=== PATIENT | male | born 1960 | race Caucasian/White ===

== ENCOUNTER 2020-11-11 19:04 | Outpatient (REF) | payer OTHER, SELFPAY ==
[2020-11-11 16:20] LABS: Abs Immature Grans 0.03 10^3/uL (0.0-0.06); Absolute Basophil Count 0.04 10^3/uL (0.0-0.2); Absolute Eosinophil Count 0.07 10^3/uL (0.0-0.7); Absolute Lymphocyte Count 2.56 10^3/uL (1.2-3.4); Absolute Monocyte Count 0.59 10^3/uL (0.1-0.8); Absolute Neutrophil Count 5.97 10^3/uL (1.2-6.7); Basophils % 0.4; Eosinophils % 0.8; HCT 50.8 % (40.0-50.0); HGB 17.1 g/dL (13.5-17.5); Immature Grans % 0.3; Lymphocytes % 27.6; MCH 30.5 pg (27.0-33.0); MCHC 33.7 % (32.0-36.0); MCV 90.7 fL (80-95); MPV 9.8 fL (8.0-11.0); Monocytes % 6.4; Neutrophils % 64.5; Nucleated RBC 0 %; Platelet Count 190 10^3/uL (130-400); RDW 12.6 % (11.8-14.1); RDW-SD 41.7 fL; WBC 9.26 10^3/uL (4.4-10.8)
[2020-11-11 16:29] LABS: COMMENT (LAB VIEW ONLY) 133.07 mg/dL; Microalb ug/mg Crea 11.3 ug/mg Cr
[2020-11-11 16:33] LABS: ALT 24 U/L (16-63); AST 13 U/L (15-37); Albumin 3.9 g/dL (3.4-5.0); Alkaline Phosphatase 133 U/L (46-116); BUN 15 mg/dL (7-18); Bilirubin, Total 0.7 mg/dL (0.2-1.0); CREATININE 0.9 mg/dL (0.70-1.30); Calcium 9.2 mg/dL (8.5-10.1); Calculated LDL 82 mg/dL (<100); Chloride 102 mmol/L (98-107); Cholesterol 134 mg/dL (<200); Glucose 282 mg/dL (74-106); HDL Cholesterol 34 mg/dL (40-60); Potassium 4.1 mmol/L (3.5-5.1); Sodium 144 mmol/L (136-145); Total Protein 6.9 g/dL (6.4-8.2); Triglyceride 91 mg/dL (<150)
[2020-11-11 18:53] LABS: Hemoglobin A1C 13.6 % (<5.7)
== END 2020-11-11 19:05 | disposition home or self-care (01) ==
LOC: NCHCN 19:04
PROVIDERS: Visit Provider Physician Assistant
DX: E11.9 Type 2 diabetes mellitus without complications (principal); I25.10 Atherosclerotic heart disease of native coronary artery without angina pectoris; K21.9 Gastro-esophageal reflux disease without esophagitis; E78.5 Hyperlipidemia, unspecified; I10 Essential (primary) hypertension; N40.0 Benign prostatic hyperplasia without lower urinary tract symptoms
CPT/HCPCS: 80053; 80061; 82043; 82570; 83036; 84443; 85025

== ENCOUNTER 2021-11-14 14:33 | Outpatient (REF) | payer OTHER, SELFPAY ==
[2021-11-14 19:33] LABS: Anion Gap 7.6 mmol/L (3-11); BUN 20 mg/dL (7-18); CO2 28.4 mmol/L (21.0-32.0); CREATININE 1.1 mg/dL (0.70-1.30); Calcium 9.3 mg/dL (8.5-10.1); Chloride 105 mmol/L (98-107); Glucose 111 mg/dL (74-106); Potassium 4.8 mmol/L (3.5-5.1); Sodium 141 mmol/L (136-145)
== END 2021-11-14 14:34 | disposition home or self-care (01) ==
LOC: NCHCN 14:33
PROVIDERS: PCP Physician Assistant; Visit Provider Physician Assistant
DX: E11.65 Type 2 diabetes mellitus with hyperglycemia (principal)
CPT/HCPCS: 80048

== ENCOUNTER → 2022-09-26 08:46 | Outpatient (BNVA) | payer OTHER, SELFPAY | PROVIDERS: PCP Physician Assistant; Referring Provider Physician Assistant; Visit Provider Surgery | DX: K22.70 Barrett's esophagus without dysplasia (principal) | CPT/HCPCS: 99203 ==

== ENCOUNTER 2022-10-30 10:01 | Day surgery (SDC) | payer OTHER, SELFPAY ==
--- NOTE | 2022-10-29 20:37 | W.PREOPHP ---
Assessment and Plan Assessment and plan (1) Barretts esophagus: Assessment and plan: EGD and colonoscopy today History of Present Illness History of Present Illness Chief Complaint: Screening colonoscopy and Baretts Esophagus Narrative: He is 62 years old, he was diagnosed with Roberson's several years ago.? At that time, he was quite symptomatic with significant amount of dyspepsia and gastroesophageal reflux symptoms.? He was also diagnosed with what sounds like Helicobacter pylori.? At that time, he was started on Nexium, and he underwent what sounds like triple therapy for the H. pylori.? He is enjoyed near complete resolution of his symptoms, but he does still experience some dyspepsia if he misses a Nexium dose.? His past medical history is also significant for coronary artery disease which was managed with two-vessel stenting.? Currently, he is only maintained on 81 mg of aspirin as well as a statin.? He was seen by his lead net software developer last week, and he has no changes to his current therapy at this time.? He also has some sleep apnea which seems pretty well managed with CPAP. PFSH All Active Problems ANGELA (obstructive sleep apnea) (Chronic) Type 2 diabetes mellitus with hyperglycemia (Acute) Hyperlipidemia (Acute) Hypertension (Chronic) Medical History Anxiety disorder Barretts esophagus Benign prostatic hyperplasia Coronary artery disease Depression Family history of Alzheimer's disease Family history of colon cancer maternal Uncle GERD (gastroesophageal reflux disease) Gout History of acute myocardial infarction Obesity Tobacco smoker within last 12 months Surgical History History of arthroscopic knee surgery History of colonoscopy History of esophagogastroduodenoscopy (EGD) History of shoulder surgery Hx of heart artery stent 2 stent per patient Social History Smoking/Tobacco Use Status: Current every day Tobacco Type: cigars Smoking risk assessment performed?: Yes Substance use type: does not use Current gender identity: male Do you feel safe at home: Yes Do you feel safe in your relationship?: Yes Meds Allergies and Home Medications Allergies Allergy/AdvReac Type Severity Reaction Status Date / Time No Known Drug Allergies Allergy Verified 09/26/22 08:56 Home Medications Medication Instructions Recorded Confirmed Type aspirin 81 mg tablet,delayed 81 mg PO DAILY 07/20/22 10/30/22 History release atorvastatin 80 mg tablet 80 mg PO DAILY 07/20/22 10/30/22 History bupropion HCl 150 mg tablet,12 hr 150 mg PO BID 07/20/22 10/30/22 History sustained-release cholecalciferol (vitamin D3) 1,250 1,250 mcg PO DAILY 07/20/22 10/30/22 History mcg (50,000 unit) capsule dulaglutide 1.5 mg/0.5 mL 1.5 mg subcut QWEEK 07/20/22 10/30/22 History subcutaneous pen injector (Trulicity) escitalopram oxalate 5 mg tablet 5 mg PO DAILY 07/20/22 10/30/22 History lisinopril 20 mg tablet 20 mg PO DAILY 07/20/22 10/30/22 History metoprolol succinate 25 mg 25 mg PO DAILY 07/20/22 10/30/22 History tablet,extended release 24 hr omeprazole 40 mg capsule,delayed 40 mg PO DAILY 07/20/22 10/30/22 History release tamsulosin 0.4 mg capsule 0.8 mg PO DAILY 07/20/22 10/30/22 History hydroxyzine HCl 10 mg tablet 10 mg PO BID PRN 09/26/22 10/30/22 History Exam Const General: cooperative and healthy appearing Neck Neck: normal visual inspection and full ROM Resp Effort & Inspection: normal respiratory effort Auscultation: clear to auscultation bilaterally Cardio Jugular venous pressure: no JVD Rate: regular rate Rhythm: regular rhythm Heart Sounds: S1 normal and S2 normal
--- NOTE | 2022-10-29 20:38 | W.PM.DSUDISC ---
Date of service: 10/30/22 Time of Service: 14:02 Discharge Plan Disposition Patient Disposition: Home Condition: Good Discharge Details Reason For Visit: EGD and colonoscopy Attending Provider: Maulik Salinas Primary Care Provider: Coco Watson Home Meds and New Rx's Prescriptions: Continued cholecalciferol (vitamin D3) 1,250 mcg (50,000 unit) capsule 1,250 mcg PO DAILY aspirin 81 mg tablet,delayed release (DR/EC) 81 mg PO DAILY bupropion HCl 150 mg tablet sustained-release 12 hr 150 mg PO BID atorvastatin 80 mg tablet 80 mg PO DAILY Trulicity 1.5 mg/0.5 mL pen injector 1.5 mg subcut QWEEK omeprazole 40 mg capsule,delayed release(DR/EC) 40 mg PO DAILY lisinopril 20 mg tablet 20 mg PO DAILY escitalopram oxalate 5 mg tablet 5 mg PO DAILY tamsulosin 0.4 mg capsule 0.8 mg PO DAILY metoprolol succinate 25 mg tablet extended release 24 hr 25 mg PO DAILY hydroxyzine HCl 10 mg tablet 10 mg PO BID PRN Discontinued polyethylene glycol 3350 17 gram/dose powder 238 g PO ONCE Qty: 238 0RF Rx Instructions: take per colonoscopy instructions bisacodyl [Dulcolax (bisacodyl)] 5 mg tablet,delayed release (DR/EC) 5 mg PO ONCE Qty: 4 0RF Rx Instructions: take per colonoscopy instructions Discharge Instructions Additional Instructions: 1. If tolerated, consume a soft, low fiber diet for 1-2 days. 2[address] Do not drive, drink alcohol, operate machinery, make critical decisions, or do activities that require coordination or balance for 24 hours. 3. Because air was put into your colon during the procedure, expelling air from your rectum (passing gas or farting) is normal. 4. You may not have a bowel movement for 1-3 days because of the colonoscopy prep. This is normal. 5. You may experience a sore throat for 24 to 48 hours. You may use throat lozenges or gargle with warm salt water to relieve the discomfort. 6. Because air was put into your stomach during the procedure, you may experience some belching. 7. Go directly to the emergency room if you notice any of the following: Develop chills (warm to touch), or if you have a thermometer and your temperature is above 101 Difficulty breathing or difficultly swallowing Persistent vomiting Severe abdominal pain, other than gas cramps Severe chest pain Black, tarry stools Any bleeding ? exceeding one tablespoon 8. Call your physician if the site where your intravenous was started becomes red, swollen, painful, and warm to touch. 9. Your physician has reviewed your pre-procedure medications. Please continue to take those medications as previously ordered. You will be given specific information/education regarding any changes to your medications before leaving. Activity:: Activity as Tolerated Diet:: As Tolerated Discharge Orders Discharge Orders: Discharge Order (Routine); Ordered 10/29/22 Ordered By: Maulik Salinas DS: Diagnosis Discharge Diagnosis (1) Barretts esophagus: Asessment and Plan: Alessandro, we were able to complete your upper and lower endoscopies today. As we talked about, you have short segment Roberson's esophagus. I will call you when I have the results of the pathology report to advise you what to do next. In the meantime you should continue to take omeprazole such that your symptoms are relieved. Your colonoscopy also went very well. You had 2 very small polyps. I removed both of them. I will call you with those results as well.
--- NOTE | 2022-10-29 20:40 | W.PM.ENDDOP ---
Date of service: 10/30/22 Time of Service: 14:04 Endoscopy Report DATE OF PROCEDURE: 10/30/22 PRE-OP DIAGNOSIS: Screening colonoscopy and Barretts Esophagus POST-OP DIAGNOSIS: same PROCEDURE: EGD with biopsies and colonoscopy with polypectomy SURGEON: Maulik Salinas ANESTHESIA TYPE: General:No Airway ESTIMATED BLOOD LOSS: 30 PATHOLOGY: other (Four-quadrant biopsies of Roberson's esophagus, colon polyps at 90 cm and 75 cm) COMPLICATIONS: None DISPOSITION: same day INDICATIONS: Alessandro is 62 years old and has had longstanding gastroesophageal reflux disease. He carries a diagnosis of Roberson's esophagus, and is due for surveillance EGD. He is also due for screening colonoscopy. PREP: Miralax/Dulcolax PROCEDURE START TIME: 12:15 PROCEDURE END TIME: 12:47 COLONOSCOPY RETRACTION TIME: 19 FINDINGS: Short segment Roberson's esophagus, colon polyps at 90 cm and 75 cm PROCEDURE DESCRIPTION: After the initiation of monitored anesthetic care, and with the assistance of a bite block, I advanced a standard gastroscope through the mouth past the hypopharynx and into the esophagus.? Under the direct vision of the scope, I advanced down the esophagus into the stomach.? Once I entered the stomach, I performed a brief inspection, followed by retroflexion towards the gastric cardia.? This appeared normal.? After that, I gently advanced the scope around the incisura angularis and examined the pylorus.? This also appeared normal.? Next, I advanced the scope through the pylorus into the duodenum.? The mucosa was pink and healthy appearing.? There were no abnormalities.? I was able to visualize bile draining into the duodenum through the ampulla Vater. ?Next, I began retracting the endoscope.? Again, I returned to the stomach which was carefully examined once again.? I then gently desufflated some of the stomach, and withdrew the endoscope into the distal esophagus. There was a small hiatal hernia. The GE junction was approximately 48 cm from the incisors. The Z-line extended up to about 46 cm. The Z-line was irregular with islands. Perform four-quadrant biopsies of the short segment Roberson's using cold polypectomy forceps. There was minimal bleeding. Finally, I withdrew the scope along the length of the esophagus taking great care to examine the entirety of the mucosa.? I did not appreciate any abnormalities. Next, we rolled Alessandro into the left lateral decubitus position, I began by performing an external anorectal exam.? Perineum and skin were normal, as was the anal verge.? There was no evidence of external hemorrhoids.? Next, I performed a digital rectal exam.? I did not appreciate any abnormal findings.? Next, I advanced a colonoscope into the rectal vault.? I performed retroflexion.? This was normal.? Using insufflation, I then advanced the colonoscope beyond the rectal folds and into the sigmoid colon before advancing towards the cecum. There was rare sigmoid diverticulosis.? The quality of the prep was excellent.? The scope was noted to be in the cecum by identification of the ileocecal valve and appendiceal orifice.? I then began withdrawing the colonoscope using repeated irrigation as necessary for full evaluation of the colonic mucosa. Around 90 cm from the anal verge I identified a 0.1 cm polyp. ?It appeared sessile in character. ?I was able to remove this with a cold forcep polypectomy. ?I examined the site, and there was minimal bleeding. Similarly, I identified a polyp around 75 cm from the anal verge. This was 0.25 cm. It was sessile. ?I removed this with cold polypectomy forceps as well. Once this was completed, I continued to withdraw the scope and examine the remainder of the colonic mucosa.?Once the scope was withdrawn to the level of the rectum, great care was taken to examine portions of the rectal folds.? Finally, the scope was withdrawn and the patient was brought to the same-day surgery recovery unit as the anesthetic wore off. ?The findings and instructions were shared with the patient prior to discharge.
[2022-10-30 10:14] VITALS: BP 134/84; PULSE 89; RESP 16; TEMP 36.6; O2SAT 96
[2022-10-30] MEDS: Lactated Ringers 1,000 ML 80 ML IV (10:50)
--- NOTE | 2022-10-30 11:33 | ANES.PREOP_ITS ---
General Info Date of Service Date Performed: 10/30/22 Height: 5 ft 9 in Weight: 95 kg Body Mass Index (BMI): 30.9 Surgical Procedure: Operation Date: 10/30/22 11:35 Proposed Procedure Side Surgeon p Colonoscopy/Gastroscopy Maulik Salinas MD Meds Allergies and Home Medications Allergies Allergy/AdvReac Type Severity Reaction Status Date / Time No Known Drug Allergies Allergy Verified 09/26/22 08:56 Home Medication Medication Instructions Recorded aspirin 81 mg tablet,delayed 81 mg PO DAILY 07/20/22 release atorvastatin 80 mg tablet 80 mg PO DAILY 07/20/22 bupropion HCl 150 mg tablet,12 hr 150 mg PO BID 07/20/22 sustained-release cholecalciferol (vitamin D3) 1,250 1,250 mcg PO DAILY 07/20/22 mcg (50,000 unit) capsule dulaglutide 1.5 mg/0.5 mL 1.5 mg subcut QWEEK 07/20/22 [facility] escitalopram oxalate 5 mg tablet 5 mg PO DAILY 07/20/22 lisinopril 20 mg tablet 20 mg PO DAILY 07/20/22 metoprolol succinate 25 mg 25 mg PO DAILY 07/20/22 tablet,extended release 24 hr omeprazole 40 mg capsule,delayed 40 mg PO DAILY 07/20/22 release tamsulosin 0.4 mg capsule 0.8 mg PO DAILY 07/20/22 hydroxyzine HCl 10 mg tablet 10 mg PO BID PRN 09/26/22 Current Visit Medications: Current Medications Generic Name Dose Route Start Last Admin Trade Name Freq PRN Reason Stop Dose Admin Hyoscyamine Sulfate 0.125 mg 10/29/22 20:42 Hyoscyamine 0.125 Mg Sl/Oral/Chew SL DIRECTED PRN Ringer's Solution 1,000 mls @ 80 mls/hr 10/30/22 06:00 10/30/22 10:50 IV 11/28/22 23:59 80 mls/hr INFUSION ANA Administration IV Miscellaneous Supplies 1 each 10/30/22 06:00 Iv Access IV 11/28/22 23:59 DIRECTED ANA Ondansetron HCl 4 mg 10/29/22 20:42 Ondansetron 4 Mg/2 Ml Vial IVP Q4H PRN PRN Nausea / Vomiting Sodium Chloride 0 ml 10/30/22 06:00 Normal Saline Flush 10 Ml Syr IV 11/28/22 23:59 PRN PRN Sodium Chloride 0 ml 10/30/22 06:00 Normal Saline 10 Ml Vial IJ 11/28/22 23:59 DIRECTED PRN Sterile Water 0 ml 10/30/22 06:00 Water,Injection,Sterile 10 Ml Vial IJ 11/28/22 23:59 DIRECTED PRN PFSH Active Problems Active Problems: Problem Status Onset Code ANGELA (obstructive sleep apnea) G47.33 Type 2 diabetes mellitus with hyperglycemia E11.65 Hyperlipidemia E78.5 Hypertension I10 Medical History Medical History Anxiety disorder Barretts esophagus Benign prostatic hyperplasia Coronary artery disease Depression Family history of Alzheimer's disease Family history of colon cancer maternal Uncle GERD (gastroesophageal reflux disease) Gout History of acute myocardial infarction Obesity Tobacco smoker within last 12 months Surgical History Surgical History History of arthroscopic knee surgery History of colonoscopy History of esophagogastroduodenoscopy (EGD) History of shoulder surgery Hx of heart artery stent 2 stent per patient Tobacco Smoking/Tobacco Use Status: Current every day Tobacco Type: cigars Substance Use Substance use type: does not use Vital Signs and Lab Results Vital Signs Most Recent Vital Signs in EMR: Most Recent Vital Signs Temp Pulse Resp BP Pulse Ox 36.6 C 89 16 134/84 96 10/30/22 10:14 10/30/22 10:14 10/30/22 10:14 10/30/22 10:14 10/30/22 10:14 Point of Care Results Point of Care Results: Finger Stick Blood Glucose 97 10/30/22 10:36 Lab Results Blood Type / Crossmatch: No Data to Display Complete Blood Count: No Data to Display Complete Metabolic Panel: No Data to Display Liver Function Panel: No Data to Display Coagulation Panel: No Data to Display Cardiac Panel: No Data to Display Arterial Blood Gas: No Data to Display Venous Blood Gas: No Data to Display Pancreas Panel: No Data to Display Thyroid Panel: No Data to Display Infectious Disease: No Data to Display Blood Cultures: No Data to Display Toxicology Panel: No Data to Display Anesthesia Assessment and Plan Anesthesia History Personal History: No History of Anesthesia Complications Family History: No Family History of Anesthesia Complications Exercise Tolerance Exercise Tolerance: Metabolic Equivalents>4 Pertinent Negatives Pertinent Negatives: No Symptoms of GERD and No Major Pulmonary Symptoms or Complaints Cardiac & Pulmonary Exam Cardiac Exam: Normal S1/S2 Heart Sounds Pulmonary Exam: Clear Bilateral Breath Sounds Implantable Cardiac Device Does patient have a Pacemaker or an ICD?: No Airway Exam Known Difficult Airway: No Mallampati Class: 2 Mouth Opening: Normal (> 3cm) Thyromental Distance: Greater than 3 cm Facial Hair: Full Benavides Neck Range of Motion: Full ROM Neck Circumference: Normal Teeth Condition: Normal Dentition ASA Classification ASA Score: ASA 3 Emergency Case?: No NPO Status NPO Status: NPO Clears >2 hours, Solids >8 hours Anesthesia Plan Resuscitation Status: Full Code Anesthesia Technique: General Anesthesia Airway Planned: Natural Airway Monitors Used: Standard Monitors
[2022-10-30 11:36] VITALS: BMI 30.9
--- NOTE | 2022-10-30 12:20 | BOWEL_PTH ---
PATIENT: Alessandro Jacobo LOC: [facility] U#:[id number] AGE/SX: 62/M ROOM: RE10/30/[address]: Maulik Salinas MD : 1960 BED: DIS: 10/30/2022 SPEC #: [id number] RECD: 10/30/22 17:33 STATUS: FIDELIA REQ #: [id number] LEEROY: 10/30/22 12:[address]: Maulik Salinas DEPT: Surgical Specimen RECD BY: Susan Talbert ENTERED: 10/30/22 17:34 SP TYPE: Bowel OTHR DR: Coco Watson Tissues: 1 - ESOPHAGUS BIOPSY 2 - BIOPSY BOWEL 3 - BIOPSY BOWEL Procedures: GROSS AND MICRO LEVEL 4 Comments: [id number]
[2022-10-30 12:54] VITALS: BP 104/70; PULSE 84; RESP 16; TEMP 36.5; O2SAT 93
[2022-10-30 13:15] VITALS: BP 110/75; PULSE 87; RESP 16; TEMP 36.2; O2SAT 95
--- NOTE | 2022-10-30 14:12 | W.ANESPOSTOP ---
Postoperative Evaluation Date, Time and Location Date Performed: 10/30/22 Time Performed: 13:20 Patient Location: Day Surgery Unit Vital Signs Most Recent Imported Vital Signs: Most Recent Vital Signs Temp Pulse Resp BP Pulse Ox 36.2 C L 87 16 110/75 95 10/30/22 13:15 10/30/22 13:15 10/30/22 13:15 10/30/22 13:15 10/30/22 13:15 Pain Score Most Recent Pain Score: Most Recent Pain Score Pain Level 0 10/30/22 13:15 Assessment Mental Status: Awake (Alert & Oriented to Patient Baseline) Airway and Respiratory Function: Patent airway with normal (patient baseline) respiratory exam Cardiovascular Function: Hemodynamically Stable Hydration Status: Adequately Hydrated Nausea & Vomiting: No Nausea or Vomiting Pain: Pt. Denies Any Pain Peripheral Nerve Block: Patient did not receive a nerve block
== END 2022-10-30 14:12 | disposition home or self-care (01) ==
PROVIDERS: PCP Physician Assistant; Visit Provider Surgery
PROC: (CPT 45380; principal; 2022-10-30 11:30)
DX: K22.70 Barrett's esophagus without dysplasia (principal); Z12.11 Encounter for screening for malignant neoplasm of colon; K63.5 Polyp of colon; K21.9 Gastro-esophageal reflux disease without esophagitis; I10 Essential (primary) hypertension; E78.5 Hyperlipidemia, unspecified; E11.65 Type 2 diabetes mellitus with hyperglycemia
CPT/HCPCS: 45380; 43239; 88305; J2704

== ENCOUNTER 2022-12-12 18:21 | Outpatient (REF) | payer OTHER, SELFPAY ==
[2022-12-12 20:20] LABS: ALT 35 U/L (16-63); AST 25 U/L (15-37); Albumin 4.1 g/dL (3.4-5.0); Alkaline Phosphatase 108 U/L (46-116); Anion Gap 8.2 mmol/L (3-11); BUN 14 mg/dL (7-18); Bilirubin, Total 1.4 mg/dL (0.2-1.0); CO2 26.8 mmol/L (21.0-32.0); CREATININE 1.1 mg/dL (0.70-1.30); Calcium 9.4 mg/dL (8.5-10.1); Chloride 104 mmol/L (98-107); Estimated GFR 74.96 (mL/min/1.73m2); Glucose 107 mg/dL (74-106); Potassium 4.3 mmol/L (3.5-5.1); Sodium 139 mmol/L (136-145); Total Protein 7.7 g/dL (6.4-8.2); Vitamin B12 504 pg/mL (193-986)
== END 2022-12-12 18:22 | disposition home or self-care (01) ==
LOC: NCHCN 18:21
PROVIDERS: PCP Physician Assistant; Visit Provider Physician Assistant
DX: I10 Essential (primary) hypertension (principal); E11.65 Type 2 diabetes mellitus with hyperglycemia; R41.3 Other amnesia
CPT/HCPCS: 80053; 82607

== ENCOUNTER 2023-06-18 17:46 | Outpatient (REF) | payer MEDICARE, OTHER, SELFPAY ==
[2023-06-19 18:25] LABS: PSA, Screening 7.1 ng/mL (<=4.5)
== END 2023-06-18 17:47 | disposition home or self-care (01) ==
LOC: NCHCN 17:46
PROVIDERS: PCP Physician Assistant; Visit Provider Physician Assistant
DX: N40.0 Benign prostatic hyperplasia without lower urinary tract symptoms (principal); R35.1 Nocturia; Z12.5 Encounter for screening for malignant neoplasm of prostate
CPT/HCPCS: 84153

== ENCOUNTER → 2023-07-08 08:57 | Outpatient (BNVA) | payer MEDICARE, OTHER, SELFPAY | PROVIDERS: PCP Physician Assistant; Referring Provider Physician Assistant; Visit Provider Nurse Practitioner Gerontology | DX: R97.20 Elevated prostate specific antigen [PSA] (principal); N40.1 Benign prostatic hyperplasia with lower urinary tract symptoms; R35.1 Nocturia | CPT/HCPCS: 51798; 81003; 99214 ==

== ENCOUNTER 2023-08-20 15:35 | Outpatient (REF) | payer MEDICARE, OTHER, SELFPAY ==
[2023-08-21 18:13] LABS: PSA, Diagnostic 6.1 ng/mL (<=4.5)
== END 2023-08-20 15:36 | disposition home or self-care (01) ==
LOC: LBN 15:35
PROVIDERS: PCP Physician Assistant; Visit Provider Nurse Practitioner Gerontology
DX: R97.20 Elevated prostate specific antigen [PSA] (principal); N40.0 Benign prostatic hyperplasia without lower urinary tract symptoms
CPT/HCPCS: 84153

== ENCOUNTER → 2023-09-12 15:00 | Outpatient (BNVA) | payer MEDICARE, OTHER, SELFPAY | PROVIDERS: PCP Physician Assistant; Referring Provider Physician Assistant; Visit Provider Nurse Practitioner Gerontology | DX: N40.1 Benign prostatic hyperplasia with lower urinary tract symptoms (principal); R35.1 Nocturia; R97.20 Elevated prostate specific antigen [PSA] | CPT/HCPCS: 99213 ==

== ENCOUNTER 2023-09-18 18:55 | Outpatient (REF) | payer MEDICARE, OTHER, SELFPAY ==
[2023-09-18 21:15] LABS: ALT 39 U/L (16-63); AST 30 U/L (15-37); Alkaline Phosphatase 103 U/L (46-116); Anion Gap 7.5 mmol/L (3-11); BUN 17 mg/dL (7-18); Bilirubin, Total 1.2 mg/dL (0.2-1.0); CO2 26.5 mmol/L (21.0-32.0); CREATININE 1.2 mg/dL (0.70-1.30); Calcium 9.3 mg/dL (8.5-10.1); Chloride 104 mmol/L (98-107); Estimated GFR 67.11 (mL/min/1.73m2); Glucose 153 mg/dL (74-106); Potassium 4.6 mmol/L (3.5-5.1); Sodium 138 mmol/L (136-145); Total Protein 7.4 g/dL (6.4-8.2)
== END 2023-09-18 18:56 | disposition home or self-care (01) ==
LOC: NCHCN 18:55
PROVIDERS: PCP Physician Assistant; Visit Provider Physician Assistant
DX: E11.9 Type 2 diabetes mellitus without complications (principal)
CPT/HCPCS: 80053; 83036

== ENCOUNTER → 2024-01-07 09:17 | Outpatient (BNVA) | payer MEDICARE, OTHER, SELFPAY | PROVIDERS: PCP Physician Assistant; Referring Provider Physician Assistant; Visit Provider Student in an Organized Health Care Education/Training Program | DX: M75.101 Unspecified rotator cuff tear or rupture of right shoulder, not specified as traumatic (principal) | CPT/HCPCS: 99213 ==

== ENCOUNTER → 2024-01-20 04:28 | Outpatient (CLI) | payer MEDICARE, OTHER, SELFPAY ==
--- NOTE | 2024-01-20 08:00 | DI.MRI_ITS ---
Exam(s) MR UPPER JOINT RT WO EXAM: MR UPPER JOINT RT WO CLINICAL HISTORY: R SHOULDER PAIN,rotator cuff arthropathy,m25.511,m75.101,m12.811. TECHNIQUE: Multiplanar multisequence MRI was performed. COMPARISON: No exams were available for comparison FINDINGS: BONES: There is no fracture or contusion pattern. JOINTS: There are mild degenerative changes seen at the acromioclavicular joint. The glenohumeral eamon int is normal. No joint effusion is seen. TENDONS: Supraspinatus: Unremarkable. Infraspinatus: There is hyperintense signal seen in the infraspinatus tendon at its insertion site wh ich may represent an intrasubstance tear versus tendinosis. (Series 6001, image 8). Subscapularis: Unremarkable. Teres Minor: Unremarkable. Biceps and [place]: There is a question of prior repositioning of the biceps tendon. Please correlate with the patient's surgical history. There are orthopedic anchors seen in the anterior aspect of th e humerus. MUSCLES: Unremarkable. GLENOID LABRUM: Unremarkable on this noncontrast examination. SOFT TISSUES: Unremarkable. LIGAMENTS: Unremarkable. OTHER: There is a mild edema/fluid in the subacromial subdeltoid bursa. IMPRESSION: 1. Hyperintense signal seen in the infraspinatus tendon near its insertion site suspicious for partia l tear versus tendinosis. 2. Degenerative changes seen at the acromioclavicular joint. 3. Postsurgical changes seen in the humeral head with a question of a repositioning of the long head of the biceps tendon. Please correlate with the surgical history. DATA REPOSITORY:
== END ==
PROVIDERS: PCP Physician Assistant; Visit Provider Student in an Organized Health Care Education/Training Program
DX: M75.101 Unspecified rotator cuff tear or rupture of right shoulder, not specified as traumatic; M12.811 Other specific arthropathies, not elsewhere classified, right shoulder
CPT/HCPCS: 73221

== ENCOUNTER 2024-01-28 15:15 | Outpatient (CLI) | payer MEDICARE, OTHER, SELFPAY ==
--- NOTE | 2024-01-28 14:45 | DI.RAD_ITS ---
Exam(s) XR SHOULDER RT COMPLETE 2+V EXAM: XR SHOULDER RT COMPLETE 2+V CLINICAL HISTORY: RIGHT SHOULDER PAIN. TECHNIQUE: 2D digital imaging was performed of the right shoulder. Two images were obtained. Axill joey and Grashey views were obtained. COMPARISON: No exams were available for comparison FINDINGS: BONES: No acute fracture is present. No bony destructive lesion is seen. JOINTS: No dislocation present. There are degenerative changes seen at the acromioclavicular joint. The glenohumeral joint is well maintained. Subchondral cysts are seen in the humeral head particular ly the lesser tuberosity. SOFT TISSUE: Normal. IMPRESSION: Arthrosis of the right shoulder. DATA REPOSITORY: RADIATION DOSE DELIVERED:
== END 2024-01-28 15:16 | disposition home or self-care (01) ==
LOC: DIORS 15:16
PROVIDERS: PCP Physician Assistant; Referring Provider Physician Assistant; Visit Provider Student in an Organized Health Care Education/Training Program
DX: M75.101 Unspecified rotator cuff tear or rupture of right shoulder, not specified as traumatic (principal); M25.511 Pain in right shoulder
CPT/HCPCS: 99213; 73030

== ENCOUNTER → 2024-02-06 10:15 | Outpatient (BNVA) | payer MEDICARE, OTHER, SELFPAY | PROVIDERS: PCP Physician Assistant; Referring Provider Physician Assistant; Visit Provider Student in an Organized Health Care Education/Training Program | DX: M17.11 Unilateral primary osteoarthritis, right knee (principal); M17.12 Unilateral primary osteoarthritis, left knee; M23.303 Other meniscus derangements, unspecified medial meniscus, right knee | CPT/HCPCS: 99214 ==

== ENCOUNTER 2024-03-17 09:17 | Outpatient (REF) | payer MEDICARE, OTHER, SELFPAY ==
[2024-03-18 17:59] LABS: PSA, Screening 10.7 ng/mL (<=4.5)
== END 2024-03-17 09:18 | disposition home or self-care (01) ==
LOC: NCHCN 09:17
PROVIDERS: PCP Physician Assistant; Visit Provider Physician Assistant
DX: R97.20 Elevated prostate specific antigen [PSA] (principal); Z12.5 Encounter for screening for malignant neoplasm of prostate
CPT/HCPCS: 84153

== ENCOUNTER → 2024-03-19 13:02 | Outpatient (BNVA) | payer MEDICARE, OTHER, SELFPAY | PROVIDERS: PCP Physician Assistant; Visit Provider Nurse Practitioner Gerontology | DX: N40.1 Benign prostatic hyperplasia with lower urinary tract symptoms (principal); R35.1 Nocturia; R97.20 Elevated prostate specific antigen [PSA] | CPT/HCPCS: 99213 ==

== ENCOUNTER → 2024-03-23 04:23 | Outpatient (CLI) | payer MEDICARE, OTHER, SELFPAY ==
--- NOTE | 2024-03-23 | DI.US_ITS ---
Exam(s) US AAA SCREENING EXAM: US AAA SCREENING CLINICAL HISTORY: Personal h/o nicotine dependence, Z87.891 COMPARISON: No exams were available for comparison FINDINGS: Abdominal Aorta: Proximal: 2.2 cm Mid: 3 cm Distal: 2.4 cm Iliacs: Right: 1.9 cm in the midportion Left: 1.8 cm in the midportion IMPRESSION: No evidence of abdominal aortic aneurysm. DATA REPOSITORY:
== END ==
PROVIDERS: PCP Physician Assistant; Visit Provider Physician Assistant
DX: Z13.6 Encounter for screening for cardiovascular disorders (principal)
CPT/HCPCS: 76706

== ENCOUNTER 2024-03-23 13:39 | Outpatient (CLI) | payer MEDICARE, OTHER, SELFPAY ==
[2024-03-23 09:04] LABS: CREATININE 1.2 mg/dL (0.70-1.30)
== END 2024-03-23 13:40 | disposition home or self-care (01) ==
LOC: LBO 13:39
PROVIDERS: PCP Physician Assistant; Visit Provider Nurse Practitioner Gerontology
DX: R97.20 Elevated prostate specific antigen [PSA] (principal); Z01.812 Encounter for preprocedural laboratory examination
CPT/HCPCS: 36415; 76706; 82565

== ENCOUNTER → 2024-04-28 08:01 | Outpatient (BNVA) | payer MEDICARE, OTHER, SELFPAY | PROVIDERS: PCP Physician Assistant; Referring Provider Physician Assistant; Visit Provider Nurse Practitioner Gerontology | DX: N40.0 Benign prostatic hyperplasia without lower urinary tract symptoms (principal); R97.20 Elevated prostate specific antigen [PSA] | CPT/HCPCS: 99214 ==

== ENCOUNTER 2024-06-25 12:00 | Outpatient (CLI) | payer MEDICARE, OTHER, SELFPAY ==
--- NOTE | 2024-06-25 10:15 | DI.RAD_ITS ---
Exam(s) XR HIP PELVIS ADULT BL EXAM: XR HIP PELVIS ADULT BL CLINICAL HISTORY: BILATERAL HIP PAIN. TECHNIQUE: 2D digital imaging was performed. Three views. COMPARISON: CR XR HIPS BILAT MIN 2V EA from 09/27/2023 FINDINGS: BONES: No acute fracture is present. No bony destructive lesion is seen. JOINTS: No dislocation present. Minimal bilateral hip joint space narrowing and mild periarticular sp urring. SI joints and pubic symphysis are unremarkable. SOFT TISSUE: Vascular calcifications. Vasectomy clips. IMPRESSION: Mild degenerative changes of both hips. DATA REPOSITORY: RADIATION DOSE DELIVERED:
== END 2024-06-25 12:01 | disposition home or self-care (01) ==
LOC: DIORS 12:00
PROVIDERS: PCP Physician Assistant; Referring Provider Physician Assistant; Visit Provider Student in an Organized Health Care Education/Training Program
DX: M25.551 Pain in right hip (principal); M25.552 Pain in left hip; M70.61 Trochanteric bursitis, right hip; M70.62 Trochanteric bursitis, left hip
CPT/HCPCS: 73521; 99214

== ENCOUNTER 2024-09-15 13:39 | Outpatient (REF) | payer MEDICARE, OTHER, SELFPAY ==
[2024-09-15 20:23] LABS: Abs Immature Grans 0.02 10^3/uL (0.0-0.06); Absolute Basophil Count 0.05 10^3/uL (0.0-0.2); Absolute Lymphocyte Count 2.14 10^3/uL (1.2-3.4); Absolute Neutrophil Count 5.44 10^3/uL (1.2-6.7); Basophils % 0.6 %; Eosinophils % 1.2 %; HCT 43.7 % (40.0-50.0); HGB 14.7 g/dL (13.5-17.5); Immature Grans % 0.2 %; Lymphocytes % 25.9 %; MCHC 33.6 % (32.0-36.0); MCV 92 fL (80-95); MPV 9.6 fL (8.0-11.0); Monocytes % 6.1 %; Platelet Count 179 10^3/uL (130-400); RBC 4.74 10^6/uL (4.36-5.78); RDW 12.7 % (11.8-14.1); RDW-SD 43.3 fL; WBC 8.25 10^3/uL (4.4-10.8)
[2024-09-15 20:38] LABS: Iron 113 ug/dL (65-175); Total Iron Binding Capacity 327 ug/dL (250-450); Transferrin Sat 35 % (20-55)
[2024-09-15 20:53] LABS: ALT 35 U/L (16-63); AST 26 U/L (15-37); Albumin 3.8 g/dL (3.4-5.0); Alkaline Phosphatase 103 U/L (46-116); Anion Gap 7.7 mmol/L (3-11); BUN 18 mg/dL (7-18); Bilirubin, Total 1.18 mg/dL (0.2-1.0); CO2 26.3 mmol/L (21.0-32.0); Chloride 104 mmol/L (98-107); Estimated GFR 83.01 (mL/min/1.73m2); Ferritin 59 ng/mL (26-388); Glucose 117 mg/dL (74-106); Potassium 4.4 mmol/L (3.5-5.1); Sodium 138 mmol/L (136-145); TSH (W/Ref FT4) 3.42 uIU/mL (0.36-3.74); Total Protein 7.1 g/dL (6.4-8.2)
[2024-09-16 19:01] LABS: Hepatitis C Ab w Rflx HCV PCR Negative (Negative)
== END 2024-09-15 13:40 | disposition home or self-care (01) ==
LOC: NCHCN 13:39
PROVIDERS: PCP Physician Assistant; Visit Provider Physician Assistant
DX: E11.9 Type 2 diabetes mellitus without complications (principal)
CPT/HCPCS: 80053; 86803; 82728; 83540; 83550; 84443; 85025

== ENCOUNTER 2024-10-22 09:14 | Outpatient (REF) | payer MEDICARE, OTHER, SELFPAY ==
[2024-10-23 17:59] LABS: PSA, Diagnostic 6.5 ng/mL (<=4.5)
== END 2024-10-22 09:15 | disposition home or self-care (01) ==
LOC: NCHCN 09:14
PROVIDERS: PCP Physician Assistant; Visit Provider Physician Assistant
DX: R97.20 Elevated prostate specific antigen [PSA] (principal)
CPT/HCPCS: 84153

== ENCOUNTER → 2024-10-28 08:29 | Outpatient (BNVA) | payer MEDICARE, OTHER, SELFPAY | PROVIDERS: PCP Physician Assistant; Referring Provider Physician Assistant; Visit Provider Nurse Practitioner Gerontology | DX: N40.0 Benign prostatic hyperplasia without lower urinary tract symptoms (principal); R97.20 Elevated prostate specific antigen [PSA] | CPT/HCPCS: 99214 ==

== ENCOUNTER 2025-04-29 20:15 | Outpatient (REF) | payer MEDICARE, OTHER, SELFPAY ==
[2025-04-30 18:32] LABS: PSA, Diagnostic 7.0 ng/mL (<=4.5)
== END 2025-04-29 20:16 | disposition home or self-care (01) ==
LOC: NCHCN 20:15
PROVIDERS: PCP Physician Assistant; Visit Provider Physician Assistant
DX: R97.20 Elevated prostate specific antigen [PSA] (principal)
CPT/HCPCS: 84153

== ENCOUNTER → 2025-05-05 08:44 | Outpatient (BNVA) | payer MEDICARE, OTHER, SELFPAY | PROVIDERS: PCP Physician Assistant; Referring Provider Physician Assistant; Visit Provider Nurse Practitioner Gerontology | DX: N40.1 Benign prostatic hyperplasia with lower urinary tract symptoms (principal); N13.8 Other obstructive and reflux uropathy; R97.20 Elevated prostate specific antigen [PSA] | CPT/HCPCS: 99213; 51798 ==

== ENCOUNTER 2025-07-29 09:51 | Outpatient (REF) | payer MEDICARE, OTHER, SELFPAY ==
--- NOTE | 2025-07-29 08:30 | SKI_PTH ---
PATIENT: Alessandro Jacobo LOC: [facility] U#:[id number] AGE/SX: 65/M ROOM: RE07/29/[address]: Coco Watson : 1960 BED: DIS: 07/29/2025 SPEC #: [id number] RECD: 07/29/25 18:29 STATUS: FIDELIA REQ #: [id number] LEEROY: 07/29/25 08:[address]: Unknown,Unknown DEPT: Surgical Specimen RECD BY: Susan Talbert ENTERED: 07/29/25 18:29 SP TYPE: SKI OTHR DR: Coco Watson Tissues: 1 - SKIN BIOPSY(SHAVE/PUNCH) Procedures: SKIN LEVEL 4 Comments: [id number]
== END 2025-07-29 09:52 | disposition home or self-care (01) ==
LOC: LBN 09:51
PROVIDERS: PCP Physician Assistant; Visit Provider Physician Assistant
DX: C44.519 Basal cell carcinoma of skin of other part of trunk (principal); D48.5 Neoplasm of uncertain behavior of skin
CPT/HCPCS: 88305